=== PATIENT | female | born 1960 | race Caucasian/White ===

== ENCOUNTER 2018-10-07 10:59 | Emergency (ER) | payer OTHER ==
[~2018-10-07] VITALS: Ht 154.9 cm; Wt 81.6 kg
[2018-10-07 11:08] VITALS: BP 163/84
[2018-10-07] MEDS ORDERED: LET SOLN TOPICAL 8 ML UDC TP ONE ×2 (11:20→11:30)
[2018-10-07] MEDS ORDERED: TDAP [DIPH/PERTUSSIS/TET] 0.5 ML VIAL IM ONE ×2 (11:21→11:30)
--- NOTE | 2018-10-07 11:31 | NUR ---
INCISION AND DRAINAGE DONE BY HUNTER MCKENO.
--- NOTE | 2018-10-07 12:45 | NUR ---
Patient discharged to home in stable condition. Written and verbal after care instructions given. Patient verbalizes understanding of instruction.
== END 2018-10-07 12:46 | disposition home or self-care (01) ==
LOC: ER 10:59
DX: L03.012 Cellulitis of left finger (principal); E78.00 Pure hypercholesterolemia, unspecified; Z85.3 Personal history of malignant neoplasm of breast; Z98.890 Other specified postprocedural states; W22.8XXA Striking against or struck by other objects, initial encounter; Y93.89 Activity, other specified; Y92.89 Other specified places as the place of occurrence of the external cause; Y99.8 Other external cause status
CPT/HCPCS: 10060; 90471; 90715; 99283; A6402; A6407

== ENCOUNTER 2019-05-05 14:19 | Emergency (ER) | payer OTHER ==
[~2019-05-05] VITALS: Ht 154.9 cm; Wt 92.5 kg
--- NOTE | 2019-05-05 14:28 | NUR ---
PATIENT BIB FROM HOME. A/O X 4. NO ACUTE DISTRESS. WITH C/O LEFT EYE PAIN WITH DISCHARGE, REPORTED STARTED THIS MORNING. VISION ACUITY DONE, LEFT EYE: 20/25, RIGHT EYE: 20/25, BOTH: 20/25. WILL CONTINUE TO MONITOR ACCORDINGLY
[2019-05-05 14:46] VITALS: BP 134/61
--- NOTE | 2019-05-05 15:00 | NUR ---
Patient discharged to home in stable condition. Prescription provided to patient. Written and verbal after care instructions given. Patient verbalizes understanding of instruction.
== END 2019-05-05 15:01 | disposition home or self-care (01) ==
LOC: ER 14:25
DX: H10.9 Unspecified conjunctivitis (principal); Z98.890 Other specified postprocedural states